=== PATIENT | female | born 1970 | race American Indian/Alaskan Native ===

== ENCOUNTER 2018-09-18 12:18 | Emergency (ER) | payer SELFPAY ==
[2018-09-18] MEDS ORDERED: NACL 0.9% 1000 ML 1,000 ML IV ONE ×3 (12:28→13:17)
--- NOTE | 2018-09-18 12:36 | Emergency Department Report ---
ED Altered Mental Status HPI - General Chief Complaint: Altered Mental Status Stated Complaint: SYNCOPE/POSS OVERDOSE Time Seen by Provider: 09/18/18 12:27 Source: EMS Mode of arrival: Stretcher Limitations: Other - History of Present Illness Initial Comments: 48-year-old female brought in by EMS for altered mental status. Patient went to the [employer] to turn herself in for unknown charges. Patient was found in the back of the courtroom altered. EMS was called and states daughter reported patient was awake and alert this morning and [facility] [employer] Daughter also reports patient took 2 pills, one for anxiety and also a muscle relaxer. Daughter reported whenever patient has blacked out before, it has been due to her being highly intoxicated with alcohol. Daughter states patient was drinking last night. Upon EMS arrival patient minimally responsive and hypotensive. 2 mg of Narcan was given without improvement in mental status. Patient transported to ED for further evaluation. Patient currently awakens to painful stimuli. Able to state her name, cannot give any other history. MD Complaint: altered mental status -: This afternoon Severity: severe Consistency of Symptoms: constant Context: alcohol abuse Treatments Prior to Arrival: IV fluid, other pre-hosp med (narcan) - Related Data Home Medications Medication Instructions Recorded Confirmed Last Taken No Known Home Medications [No 09/18/18 09/18/18 Unknown Reported Home Medications] Allergies Allergy/AdvReac Type Severity Reaction Status Date / Time acetaminophen [From Percocet] Allergy Hives Verified 09/18/18 12:27 oxycodone HCl [From Percocet] Allergy Hives Verified 09/18/18 12:27 ED Review of Systems ROS: Stated complaint: SYNCOPE/POSS OVERDOSE Other details as noted in HPI Comment: Unobtainable due to pts medical conditions (altered mental status) ED Past Medical Hx - Past Medical History Previous Medical History?: No - Surgical History Past Surgical History?: Yes Additional Surgical History: , GASTRIC BYPASS, BREAST REDUCTION, BACK SX - Social History Smoking Status: Unknown if ever smoked Substance Use Type: None - Medications Home Medications: Home Medications Medication Instructions Recorded Confirmed Last Taken Type No Known Home Medications [No 09/18/18 09/18/18 Unknown History Reported Home Medications] ED Physical Exam - General Limitations: Other General appearance: lethargic - Head Head exam: Present: atraumatic, normocephalic - Eye Eye exam: Present: normal appearance, PERRL - ENT ENT exam: Present: mucous membranes moist - Neck Neck exam: Present: normal inspection - Respiratory Respiratory exam: Present: normal lung sounds bilaterally. Absent: respiratory distress - Cardiovascular Cardiovascular Exam: Present: regular rate, normal rhythm - GI/Abdominal GI/Abdominal exam: Present: soft. Absent: distended, tenderness - Extremities Exam Extremities exam: Present: normal inspection - Neurological Exam Neurological exam: Present: altered. Absent: oriented X3 (oriented to self only) - Skin Skin exam: Present: warm, dry, intact, normal color ED Course Vital Signs 09/18/18 09/18/18 09/18/18 12:14 12:16 12:20 Temperature Pulse Rate 66 61 64 Respiratory 13 14 12 Rate Blood Pressure 79/53 Blood Pressure 75/43 [Right] O2 Sat by Pulse 91 95 Oximetry 09/18/18 09/18/18 09/18/18 12:30 12:39 12:46 Temperature 97.9 F Pulse Rate 57 L 56 L 56 L Respiratory 11 L 12 12 Rate Blood Pressure 79/53 88/58 Blood Pressure 88/66 [Right] O2 Sat by Pulse 97 99 98 Oximetry 09/18/18 09/18/18 09/18/18 12:50 12:55 12:58 Temperature Pulse Rate 55 L 52 L Respiratory 12 12 12 Rate Blood Pressure Blood Pressure 84/56 87/58 [Right] O2 Sat by Pulse 97 98 Oximetry 09/18/18 09/18/18 09/18/18 13:00 13:12 13:24 Temperature Pulse Rate 50 L 54 L 58 L Respiratory 11 L 12 10 L Rate Blood Pressure 94/69 Blood Pressure 95/71 [Right] O2 Sat by Pulse 94 98 Oximetry 09/18/18 09/18/18 09/18/18 13:25 13:30 13:45 Temperature Pulse Rate 51 L 52 L 53 L Respiratory 10 L 10 L 10 L Rate Blood Pressure 94/69 91/63 Blood Pressure 94/55 [Right] O2 Sat by Pulse 98 97 99 Oximetry 09/18/18 09/18/18 09/18/18 14:00 14:15 14:30 Temperature Pulse Rate 52 L 51 L 53 L Respiratory 9 L 9 L 10 L Rate Blood Pressure 98/70 103/71 95/71 Blood Pressure [Right] O2 Sat by Pulse 99 100 100 Oximetry 09/18/18 09/18/18 09/18/18 14:45 15:00 15:15 Temperature Pulse Rate 54 L 56 L 60 Respiratory 10 L 11 L 12 Rate Blood Pressure 100/73 99/73 97/72 Blood Pressure [Right] O2 Sat by Pulse 100 100 100 Oximetry 09/18/18 09/18/18 09/18/18 15:30 15:46 16:00 Temperature Pulse Rate 62 61 57 L Respiratory 11 L 14 10 L Rate Blood Pressure 105/73 105/79 114/89 Blood Pressure [Right] O2 Sat by Pulse 100 Oximetry 09/18/18 09/18/18 09/18/18 16:16 16:30 16:46 Temperature Pulse Rate 54 L 58 L 55 L Respiratory 14 12 10 L Rate Blood Pressure 99/72 99/72 112/82 Blood Pressure [Right] O2 Sat by Pulse Oximetry 09/18/18 09/18/18 09/18/18 17:00 17:16 17:30 Temperature Pulse Rate 55 L 57 L 74 Respiratory 12 12 14 Rate Blood Pressure 112/82 118/85 118/85 Blood Pressure [Right] O2 Sat by Pulse Oximetry - Reevaluation(s) Reevaluation #1: 09/18/18 15:47 Pt currently awake and alert. Oriented x 3. No neuro deficits present. States she had court appearance for DUI. Pt states she would like to speak to mental health advisor regarding her alcohol abuse. - Lab Data Result diagrams: 09/18/18 13:08 09/18/18 13:08 Lab Results 09/18/18 09/18/18 09/18/18 Range/Units 12:29 12:29 13:08 WBC (4.5-11.0) K/mm3 RBC (3.65-5.03) M/mm3 Hgb (10.1-14.3) gm/dl Hct (30.3-42.9) % MCV (79-97) fl MCH (28-32) pg MCHC (30-34) % RDW (13.2-15.2) % Plt Count (140-440) K/mm3 Lymph % (Auto) (13.4-35.0) % [place] % (Auto) (0.0-7.3) % Eos % (Auto) (0.0-4.3) % Baso % (Auto) (0.0-1.8) % Lymph # (1.2-5.4) K/mm3 [place] # (0.0-0.8) K/mm3 Eos # (0.0-0.4) K/mm3 Baso # (0.0-0.1) K/mm3 Seg Neutrophils % (40.0-70.0) % Seg Neutrophils # (1.8-7.7) K/mm3 PT (12.2-14.9) Sec. INR (0.87-1.13) APTT (24.2-36.6) Sec. Sodium (137-145) mmol/L Potassium (3.6-5.0) mmol/L Chloride (98-107) mmol/L Carbon Dioxide (22-30) mmol/L Anion Gap mmol/L BUN (7-17) mg/dL Creatinine (0.7-1.2) mg/dL Estimated GFR ml/min BUN/Creatinine Ratio % Glucose (65-100) mg/dL Calcium (8.4-10.2) mg/dL Total Bilirubin (0.1-1.2) mg/dL Direct Bilirubin (0-0.2) mg/dL Indirect Bilirubin mg/dL AST (5-40) units/L ALT (7-56) units/L Alkaline Phosphatase (35-129) units/L Troponin T < 0.010 (0.00-0.029) ng/mL Total Protein (6.3-8.2) g/dL Albumin (3.9-5) g/dL Albumin/Globulin Ratio % Urine Color Moh[place] (Yellow) Urine Turbidity Slightly-cloudy (Clear) Urine pH 7.0 (5.0-7.0) Ur Specific [place] 1.009 (1.003-1.030) Urine Protein 30 mg/dl (Negative) mg/dL Urine Glucose (UA) 50 (Negative) mg/dL Urine Ketones Neg (Negative) mg/dL Urine Blood Neg (Negative) Urine Nitrite Neg (Negative) Urine Bilirubin Neg (Negative) Urine Urobilinogen 2.0 (<2.0) mg/dL Ur Leukocyte Esterase Neg (Negative) Urine WBC (Auto) 5.0 (0.0-6.0) /HPF Urine RBC (Auto) 2.0 (0.0-6.0) /HPF U Epithel Cells (Auto) 2.0 (0-13.0) /HPF Urine Bacteria (Auto) 2+ (Negative) /HPF Urine Mucus Few /HPF Urine HCG, Qual Negative (Negative) Salicylates (2.8-20.0) mg/dL Urine Opiates Screen Presumptive negative Urine Methadone Screen Presumptive negative Acetaminophen (10.0-30.0) ug/mL Ur Barbiturates Screen Presumptive negative Ur Phencyclidine Scrn Presumptive negative Ur Amphetamines Screen Presumptive negative U Benzodiazepines Scrn Presumptive negative Urine Cocaine Screen Presumptive negative U Marijuana (THC) Screen Presumptive positive Drugs of Abuse Note Disclamer Plasma/Serum Alcohol (0-0.07) % 09/18/18 09/18/18 09/18/18 Range/Units 13:08 13:08 13:08 WBC 2.6 L (4.5-11.0) K/mm3 RBC 2.66 L (3.65-5.03) M/mm3 Hgb 11.0 (10.1-14.3) gm/dl Hct 32.3 (30.3-42.9) % MCV 121 H (79-97) fl MCH 41 H (28-32) pg MCHC 34 (30-34) % RDW 15.1 (13.2-15.2) % Plt Count 147 (140-440) K/mm3 Lymph % (Auto) 41.8 H (13.4-35.0) % [place] % (Auto) 11.6 H (0.0-7.3) % Eos % (Auto) 2.0 (0.0-4.3) % Baso % (Auto) 1.3 (0.0-1.8) % Lymph # 1.1 L (1.2-5.4) K/mm3 [place] # 0.3 (0.0-0.8) K/mm3 Eos # 0.1 (0.0-0.4) K/mm3 Baso # 0.0 (0.0-0.1) K/mm3 Seg Neutrophils % 43.3 (40.0-70.0) % Seg Neutrophils # 1.1 L (1.8-7.7) K/mm3 PT 15.9 H (12.2-14.9) Sec. INR 1.19 H (0.87-1.13) APTT 28.7 (24.2-36.6) Sec. Sodium 144 (137-145) mmol/L Potassium 3.5 L (3.6-5.0) mmol/L Chloride 111.6 H (98-107) mmol/L Carbon Dioxide 18 L (22-30) mmol/L Anion Gap 18 mmol/L BUN 5 L (7-17) mg/dL Creatinine 0.8 (0.7-1.2) mg/dL Estimated GFR > 60 ml/min BUN/Creatinine Ratio 6 % Glucose 117 H (65-100) mg/dL Calcium 6.8 L (8.4-10.2) mg/dL Total Bilirubin 0.70 (0.1-1.2) mg/dL Direct Bilirubin 0.4 H (0-0.2) mg/dL Indirect Bilirubin 0.3 mg/dL AST 222 H (5-40) units/L ALT 63 H (7-56) units/L Alkaline Phosphatase 98 (35-129) units/L Troponin T (0.00-0.029) ng/mL Total Protein 5.0 L (6.3-8.2) g/dL Albumin 2.4 L (3.9-5) g/dL Albumin/Globulin Ratio 0.9 % Urine Color (Yellow) Urine Turbidity (Clear) Urine pH (5.0-7.0) Ur Specific [place] (1.003-1.030) Urine Protein (Negative) mg/dL Urine Glucose (UA) (Negative) mg/dL Urine Ketones (Negative) mg/dL Urine Blood (Negative) Urine Nitrite (Negative) Urine Bilirubin (Negative) Urine Urobilinogen (<2.0) mg/dL Ur Leukocyte Esterase (Negative) Urine WBC (Auto) (0.0-6.0) /HPF Urine RBC (Auto) (0.0-6.0) /HPF U Epithel Cells (Auto) (0-13.0) /HPF Urine Bacteria (Auto) (Negative) /HPF Urine Mucus /HPF Urine HCG, Qual (Negative) Salicylates (2.8-20.0) mg/dL Urine Opiates Screen Urine Methadone Screen Acetaminophen (10.0-30.0) ug/mL Ur Barbiturates Screen Ur Phencyclidine Scrn Ur Amphetamines Screen U Benzodiazepines Scrn Urine Cocaine Screen U Marijuana (THC) Screen Drugs of Abuse Note Plasma/Serum Alcohol (0-0.07) % 09/18/18 09/18/18 09/18/18 Range/Units 13:08 13:08 13:08 WBC (4.5-11.0) K/mm3 RBC (3.65-5.03) M/mm3 Hgb (10.1-14.3) gm/dl Hct (30.3-42.9) % MCV (79-97) fl MCH (28-32) pg MCHC (30-34) % RDW (13.2-15.2) % Plt Count (140-440) K/mm3 Lymph % (Auto) (13.4-35.0) % [place] % (Auto) (0.0-7.3) % Eos % (Auto) (0.0-4.3) % Baso % (Auto) (0.0-1.8) % Lymph # (1.2-5.4) K/mm3 [place] # (0.0-0.8) K/mm3 Eos # (0.0-0.4) K/mm3 Baso # (0.0-0.1) K/mm3 Seg Neutrophils % (40.0-70.0) % Seg Neutrophils # (1.8-7.7) K/mm3 PT (12.2-14.9) Sec. INR (0.87-1.13) APTT (24.2-36.6) Sec. Sodium (137-145) mmol/L Potassium (3.6-5.0) mmol/L Chloride (98-107) mmol/L Carbon Dioxide (22-30) mmol/L Anion Gap mmol/L BUN (7-17) mg/dL Creatinine (0.7-1.2) mg/dL Estimated GFR ml/min BUN/Creatinine Ratio % Glucose (65-100) mg/dL Calcium (8.4-10.2) mg/dL Total Bilirubin (0.1-1.2) mg/dL Direct Bilirubin (0-0.2) mg/dL Indirect Bilirubin mg/dL AST (5-40) units/L ALT (7-56) units/L Alkaline Phosphatase (35-129) units/L Troponin T (0.00-0.029) ng/mL Total Protein (6.3-8.2) g/dL Albumin (3.9-5) g/dL Albumin/Globulin Ratio % Urine Color (Yellow) Urine Turbidity (Clear) Urine pH (5.0-7.0) Ur Specific [place] (1.003-1.030) Urine Protein (Negative) mg/dL Urine Glucose (UA) (Negative) mg/dL Urine Ketones (Negative) mg/dL Urine Blood (Negative) Urine Nitrite (Negative) Urine Bilirubin (Negative) Urine Urobilinogen (<2.0) mg/dL Ur Leukocyte Esterase (Negative) Urine WBC (Auto) (0.0-6.0) /HPF Urine RBC (Auto) (0.0-6.0) /HPF U Epithel Cells (Auto) (0-13.0) /HPF Urine Bacteria (Auto) (Negative) /HPF Urine Mucus /HPF Urine HCG, Qual (Negative) Salicylates < 0.3 L (2.8-20.0) mg/dL Urine Opiates Screen Urine Methadone Screen Acetaminophen < 5.0 L (10.0-30.0) ug/mL Ur Barbiturates Screen Ur Phencyclidine Scrn Ur Amphetamines Screen U Benzodiazepines Scrn Urine Cocaine Screen U Marijuana (THC) Screen Drugs of Abuse Note Plasma/Serum Alcohol 0.23 H (0-0.07) % - EKG Data -: EKG Interpreted by Me EKG shows normal: sinus rhythm, axis, intervals, QRS complexes, ST-T waves Rate: normal Interpretation: no acute changes - Medical Decision Making 48-year-old female with alcohol intoxication. Patient unresponsive at [facility] and transported here to ED. Essentially hypotensive, 3 L of normal saline given, patient currently with normal vital signs. Serum EtOH level 230. Patient also took a muscle relaxer and something for anxiety, so this added to the sedating effects of alcohol by itself. Patient currently awake and alert. Daughter is here at bedside to transport patient home. Mental health evaluation was obtained, patient will be given outpatient resources for alcohol rehabilitation as she does not meet inpatient criteria. Patient denies SI, HI or hallucinations. Remainder of workup unremarkable, including CT head, chest x-ray and remainder of her labs. Outpatient follow-up advised, return precautions given. - Differential Diagnosis alcohol abuse, drug abuse, CVA Critical care attestation.: If time is entered above; I have spent that time in minutes in the direct care of this critically ill patient, excluding procedure time. ED Disposition Clinical Impression: Alcohol intoxication, Hypotension, Dehydration Disposition: DC-01 TO HOME OR SELFCARE Is pt being admited?: No Condition: Stable Instructions: Abuse of Alcohol (ED) Referrals: PRIMARY CARE, [Primary Care Provider] - 3-5 Days [facility] [Provider Group] - 3-[address] [facility] [Outside] - 3-5 Days Time of Disposition: 17:38
[2018-09-18 12:55] LABS: Bacteria,Urine 2+ /HPF (Negative); Bilirubin,Urine NEG (Negative); Blood,Urine NEG (Negative); Color,Urine Amber (Yellow); Mucus,Urine FEW /HPF
[2018-09-18 12:57] LABS: Amphetamine Screen,Urine PRESUMPTIVE NEGATIVE; Benzodiazepines Screen,Urine PRESUMPTIVE NEGATIVE; Cocaine Screen,Urine PRESUMPTIVE NEGATIVE; Methadone Screen,Urine PRESUMPTIVE NEGATIVE; Opiate Screen,Urine PRESUMPTIVE NEGATIVE
[2018-09-18 13:00] LABS: HCG Qualitative,Urine Negative (Negative)
[2018-09-18 13:19] LABS: Basophils % (Auto) 1.3 % (0.0-1.8); Eosinophils # (Auto) 0.1 K/mm3 (0.0-0.4); Hematocrit 32.3 % (30.3-42.9); Lymphocytes # (Auto) 1.1 K/mm3 (1.2-5.4); Lymphocytes % (Auto) 41.8 % (13.4-35.0); Mean Corpuscular HGB Conc 34 % (30-34); Monocytes # (Auto) 0.3 K/mm3 (0.0-0.8); Monocytes % (Auto) 11.6 % (0.0-7.3); Platelet Count 147 K/mm3 (140-440); Red Blood Count 2.66 M/mm3 (3.65-5.03); Red Cell Distribution Width 15.1 % (13.2-15.2)
[2018-09-18 13:24] LABS: Cannabinoid Screen,Urine PRESUMPTIVE POSITIVE
[2018-09-18 13:24] LABS: Mean Corpuscular Volume 121 fl (79-97)
[2018-09-18 13:29] LABS: INR 1.19 (0.87-1.13)
[2018-09-18 13:30] LABS: Partial Thromboplastin Time 28.7 Sec. (24.2-36.6)
[2018-09-18 13:45] LABS: Alanine Aminotransferase 63 units/L (7-56); Albumin 2.4 g/dL (3.9-5); BUN/Creatinine Ratio 6; Bilirubin,Direct 0.4 mg/dL (0-0.2); Blood Urea Nitrogen 5 mg/dL (7-17); Calcium 6.8 mg/dL (8.4-10.2); Hemolysis Index 7
--- NOTE | 2018-09-18 13:50 | Cat Scan Report ---
CT HEAD WITHOUT CONTRAST: HISTORY: Altered mental status. TECHNIQUE: Sequential 2.5mm CT images. COMPARISON: none. FINDINGS: Cerebral Parenchyma: Within normal limits. Cerebellum: Within normal limits. Brainstem: Within normal limits. Ventricles: Normal. Sella: Normal. Extra-axial spaces: Normal. Basal Cisterns: Normal. Intracranial Hemorrhage: None. Midline Shift: None. Calvarium: Normal. Sinuses: Normal. Mastoid Air Cells: Normal. Visualized Orbits: Normal. IMPRESSION: Cranial CT scan within normal limits.
--- NOTE | 2018-09-18 14:25 | XRay Report ---
AP CHEST: HISTORY: Altered mental status AP view of the chest demonstrates a normal mediastinal and cardiac contour with clear lungs and normal bony and soft tissue structures. IMPRESSION: Unremarkable AP chest.
[2018-09-18 20:56] VITALS: BP 118/85
== END 2018-09-18 17:42 | disposition home or self-care (01) ==
LOC: ED 12:18
DX: F10.129 Alcohol abuse with intoxication, unspecified (principal); I95.9 Hypotension, unspecified; E86.0 Dehydration
CPT/HCPCS: 36415; 70450; 71045; 80048; 80076; 80307; 81001; 81025; 82962; 84484; 85025; 85610; 85730; 93005; 93010; 96360; 99285; G0480; J7030; 80320

== ENCOUNTER 2019-05-17 10:40 | Emergency (ER) | payer SELFPAY ==
[2019-05-17 10:47] VITALS: BP 141/92
--- NOTE | 2019-05-17 11:44 | Emergency Department Report ---
Chief Complaint: Headache Stated Complaint: BLOOD PRESSURE HIGH Time Seen by Provider: 05/17/19 11:18 - HPI History of Present Illness: This is a 41-year-old female with a history of hypertension who is currently taking losartan and hydrochlorothiazide presents to ED for elevated blood pressure stating she had a headache yesterday while she was at work. Patient states that she has not had her blood pressure medication for the past 2 days because she has been out. Patient denies fevers/chest pain/shortness of breath/dizziness/vision disturbances of any kind. Patient states she wanted to get her refill - ROS Review of Systems: As noted in the HPI - Exam Vital Signs: Vital Signs 05/17/19 10:45 Temperature 97.8 F Pulse Rate 66 Respiratory 20 Rate Blood Pressure 141/92 O2 Sat by Pulse 100 Oximetry Physical Exam: GENERAL: Alert and oriented x3, no apparent distress, Normal Gait, atraumatic. HEAD: Head is normocephalic and a-traumatic. SKIN: Warm and dry, No lesions, No ulceration or induration present. MSE screening note: Focused history and physical exam performed. Due to findings the following was ordered: ED Medical Decision Making - Medical Decision Making 49-year-old female with a history of hypertension presents for medication refill Patient is asymptomatic in the ED, vital signs are normal. I encouraged patient to go over to Dr. Wheat office to get her medication refill Patient understands instructions and will follow-up ED Disposition for MSE Clinical Impression: Chronic hypertension Disposition: DC-01 TO HOME OR SELFCARE Is pt being admited?: No Does the pt Need Aspirin: No Condition: Stable Instructions: Hypertension (ED) Referrals: [facility] [Outside] - 3-5 Days [facility] [Outside] - 3-5 Days Forms: Work/School Release Form(ED) Time of Disposition: 11:45
== END 2019-05-17 12:16 | disposition home or self-care (01) ==
LOC: ED 10:40
DX: I10 Essential (primary) hypertension (principal); Z88.6 Allergy status to analgesic agent; Z88.5 Allergy status to narcotic agent

== ENCOUNTER 2019-09-19 12:58 | Emergency (ER) | payer SELFPAY ==
--- NOTE | 2019-09-19 13:49 | XRay Report ---
CHEST 2 VIEWS INDICATION / CLINICAL INFORMATION: cough/shortness of breath. COMPARISON: Chest x-ray on 09/18/2018. FINDINGS: SUPPORT DEVICES: None. HEART / MEDIASTINUM: No significant abnormality. LUNGS / PLEURA: No significant pulmonary or pleural abnormality. No pneumothorax. ADDITIONAL FINDINGS: No significant additional findings. IMPRESSION: 1. No acute findings. Signer Name: Hira Dickey MD Signed: 09/19/2019 1:45 PM Workstation Name: [id number]
[2019-09-19] MEDS ORDERED: SODIUM CHLORIDE 0.9% 1000 ML 1,000 ML IV ONE (14:03)
[2019-09-19] MEDS ORDERED: ONDANSETRON 4 MG/2 ML INJ IV ONE (14:03)
[2019-09-19 14:04] VITALS: BP 117/100
--- NOTE | 2019-09-19 14:08 | Emergency Department Report ---
ED General Adult HPI - General Chief complaint: Dyspnea/Respdistress Stated complaint: TABATHA Time Seen by Provider: 09/19/19 13:48 Source: patient Mode of arrival: Ambulatory Limitations: No Limitations - History of Present Illness Initial comments: Patient is 49 years old female with history of hypertension. Patient presented to the ER complaining of cough and shortness of breath for the last 3 days. Patient also stated that she has been having nausea vomiting and diarrhea. Patient stated that she has been notified that on September 09 of her coworker tested positive for COVID-19. Patient denied any fever or chills. Severity scale (0 -10): 7 - Related Data Home Medications Medication Instructions Recorded Confirmed Last Taken No Known Home Medications [No 09/18/18 09/18/18 Unknown Reported Home Medications] Allergies Allergy/AdvReac Type Severity Reaction Status Date / Time acetaminophen [From Percocet] Allergy Hives Verified 09/18/18 12:27 oxycodone HCl [From Percocet] Allergy Hives Verified 09/18/18 12:27 ED Review of Systems ROS: Stated complaint: TABATHA Other details as noted in HPI Comment: All other systems reviewed and negative Constitutional: denies: chills, fever Respiratory: cough, shortness of breath. denies: wheezing Cardiovascular: denies: chest pain, palpitations Gastrointestinal: nausea, vomiting, diarrhea. denies: abdominal pain, constipation, hematemesis, hematochezia Musculoskeletal: denies: back pain Neurological: denies: headache, weakness, numbness, paresthesias, confusion, abnormal gait ED Past Medical Hx - Past Medical History Previous Medical History?: Yes Hx Hypertension: Yes Additional medical history: ETOH abuse - Surgical History Past Surgical History?: Yes Additional Surgical History: , GASTRIC BYPASS, BREAST REDUCTION, BACK SX - Social History Smoking Status: Never Smoker Substance Use Type: Alcohol - Medications Home Medications: Home Medications Medication Instructions Recorded Confirmed Last Taken Type No Known Home Medications [No 09/18/18 09/18/18 Unknown History Reported Home Medications] ED Physical Exam - General Limitations: No Limitations General appearance: alert, in no apparent distress - Head Head exam: Present: atraumatic, normocephalic, normal inspection - Eye Eye exam: Present: normal appearance, PERRL - ENT ENT exam: Present: mucous membranes dry - Neck Neck exam: Present: normal inspection, full ROM. Absent: tenderness, meningismus, lymphadenopathy, thyromegaly - Respiratory Respiratory exam: Present: normal lung sounds bilaterally - Cardiovascular Cardiovascular Exam: Present: regular rate, normal rhythm, normal heart sounds - GI/Abdominal GI/Abdominal exam: Present: soft, normal bowel sounds. Absent: distended, tenderness, guarding, rigid, organomegaly, mass, bruit, pulsatile mass, hernia - Extremities Exam Extremities exam: Present: normal inspection, full ROM, normal capillary refill. Absent: tenderness, pedal edema, calf tenderness - Back Exam Back exam: Present: normal inspection, full ROM. Absent: CVA tenderness (R), CVA tenderness (L), muscle spasm, paraspinal tenderness, vertebral tenderness - Neurological Exam Neurological exam: Present: alert, oriented X3, CN II-XII intact - Psychiatric Psychiatric exam: Present: normal mood - Skin Skin exam: Present: warm, intact, normal color ED Course Vital Signs 09/19/19 09/19/19 09/19/19 13:03 13:50 13:56 Temperature 97.6 F 98 F Pulse Rate 89 Respiratory 24 Rate Blood Pressure 138/94 Blood Pressure 163/109 [Right] O2 Sat by Pulse 100 Oximetry 09/19/19 14:00 Temperature Pulse Rate 78 Respiratory 10 L Rate Blood Pressure 117/100 Blood Pressure [Right] O2 Sat by Pulse 98 Oximetry ED Medical Decision Making - Lab Data Result diagrams: 09/19/19 14:26 09/19/19 14:26 - Radiology Data Radiology results: report reviewed - Medical Decision Making Patient is 49 years old female with history of hypertension. Patient presented to the ER complaining of cough and shortness of breath for the last 3 days. Patient also stated that she has been having nausea vomiting and diarrhea. Patient stated that she has been notified that on September 09 of her coworker tested positive for COVID-19. Patient denied any fever or chills. Patient received normal saline and Zofran. Labs reviewed and is unremarkable including d-dimer, ferritin level, pro calcitonin, lactic and LDH. Patient does not meet any criteria for admission. Patient advised to follow-up with her primary care physician for outpatient testing for COVID-19. Patient advised to return to the ER if she develop any new symptoms or her symptoms get worse. Critical care attestation.: If time is entered above; I have spent that time in minutes in the direct care of this critically ill patient, excluding procedure time. ED Disposition Clinical Impression: Shortness of breath, Nausea vomiting and diarrhea Disposition: DC-01 TO HOME OR SELFCARE Is pt being admited?: No Condition: Stable Instructions: Acute Nausea and Vomiting (ED) Referrals: PRIMARY CARE,MD [Primary Care Provider] - 3-5 Days
[2019-09-19 14:39] LABS: Basophils # (Auto) 0.1 K/mm3 (0.0-0.1); Basophils % (Auto) 1.5 % (0.0-1.8); Eosinophils # (Auto) 0.4 K/mm3 (0.0-0.4); Eosinophils % (Auto) 6.2 % (0.0-4.3); Hematocrit 35.6 % (30.3-42.9); Hemoglobin 12.1 gm/dl (10.1-14.3); Lymphocytes # (Auto) 2.8 K/mm3 (1.2-5.4); Lymphocytes % (Auto) 49.4 % (13.4-35.0); Mean Corpuscular HGB Conc 34 % (30-34); Mean Corpuscular Volume 100 fl (79-97); Monocytes # (Auto) 0.4 K/mm3 (0.0-0.8); Monocytes % (Auto) 6.7 % (0.0-7.3); Platelet Count 210 K/mm3 (140-440); Red Blood Count 3.56 M/mm3 (3.65-5.03)
[2019-09-19 14:43] LABS: Red Cell Distribution Width 20.4 % (13.2-15.2)
[2019-09-19 14:58] LABS: BUN/Creatinine Ratio 15; Blood Urea Nitrogen 9 mg/dL (7-17); Hemolysis Index 5
[2019-09-19 15:02] LABS: Alanine Aminotransferase 18 units/L (7-56); Albumin 3.8 g/dL (3.9-5)
[2019-09-19 15:08] LABS: Bilirubin,Direct < 0.2 mg/dL (0-0.2)
== END 2019-09-19 16:48 | disposition home or self-care (01) ==
LOC: ED 12:58
DX: R06.02 Shortness of breath (principal); R11.2 Nausea with vomiting, unspecified; R19.7 Diarrhea, unspecified; I10 Essential (primary) hypertension; Z98.890 Other specified postprocedural states; Z79.899 Other long term (current) drug therapy; Z88.8 Allergy status to other drugs, medicaments and biological substances
CPT/HCPCS: 36415; 71046; 80048; 80076; 82728; 83615; 84145; 85025; 85379; 86140; 96361; 96374; 99284; J2405; J7030

== ENCOUNTER 2020-09-09 16:08 | Emergency (ER) | payer OTHER ==
[2020-09-09 16:41] VITALS: BP 139/88
[2020-09-09] MEDS ORDERED: NAPROXEN 500 MG TAB PO ONE (17:03)
--- NOTE | 2020-09-09 17:06 | Event Note ---
ED Screening Note Date of service: 09/09/20 Time: 17:04
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
== END 2020-09-09 19:55 | disposition home or self-care (01) ==
LOC: ED 16:08
DX: S39.012A Strain of muscle, fascia and tendon of lower back, initial encounter (principal); I10 Essential (primary) hypertension; F17.200 Nicotine dependence, unspecified, uncomplicated; Z98.890 Other specified postprocedural states; Z79.899 Other long term (current) drug therapy; Z88.8 Allergy status to other drugs, medicaments and biological substances; V49.59XA Passenger injured in collision with other motor vehicles in traffic accident, initial encounter; Y92.410 Unspecified street and highway as the place of occurrence of the external cause; Y93.89 Activity, other specified; Y99.8 Other external cause status
CPT/HCPCS: 72131

== ENCOUNTER 2021-09-17 10:19 | Outpatient (CLI) | payer OTHER ==
--- NOTE | 2021-09-17 11:28 | XRay Report ---
Cervical spine 3 views INDICATION: Neck pain FINDINGS: Discogenic degenerative changes endplate changes and anterior disc osteophytes at several l evels. No prevertebral soft tissue swelling no subluxation IMPRESSION: Degenerative changes seen throughout spine Lumbar spine 3 views INDICATION: Back pain FINDINGS: Facet degenerative change at L4-5 and L5-S1. Endplate changes most significant at L5-S1. Sa carmen and sacroiliac joints appear normal IMPRESSION: Degenerative change in lower lumbar spine Signer Name: Mikhail Mendoza MD Signed: 09/17/2021 11:23 AM Workstation Name: [id number]
== END 2021-09-17 10:20 | disposition home or self-care (01) ==
LOC: XRAY 10:19
PROVIDERS: ATTEND Internal Medicine
DX: M47.816 Spondylosis without myelopathy or radiculopathy, lumbar region (principal); M47.812 Spondylosis without myelopathy or radiculopathy, cervical region
CPT/HCPCS: 72040; 72100